=== PATIENT | male | born 1960 | race Two or more races ===

== ENCOUNTER → 2025-01-20 | Emergency (ER) | payer OTHER ==
[~2025-01-20] VITALS: Ht 182.9 cm; Wt 77.1 kg
[~2025-01-20] MED LIST: 0.9 % SODIUM CHLORIDE 1,000 ML IV STA; ATACAND32 MG PO; CRESTOR40 MG PO; GLIPIZIDE XL10 MG PO; KETOROLAC TROMETHAMINE 30 MG VIAL IV STA; PIPERACILLIN/TAZOBACTAM SODIUM 3.375 GM VIAL IV ONE; PIPERACILLIN/TAZOBACTAM SODIUM 3.375 GM VIAL IV STA; SYNTHROID75 MCG PO; TRAMADOL HCL 50 MG TABLET PO STA; XIGDUO XR 10 M1 EAC1 PO
[2025-01-20 04:32] LABS: BASO % 0.3 % (0.1-1.2); EOS # 0.03 (0.04-0.54); EOS % 0.2 % (0.7-7.0); LYMPH # 1.33 (1.18-3.74); LYMPH % 8.5 % (19.3-53.1); MEAN PLATELET VOLUME 8.70 fl (9.4-12.4); MONO # 1.04 (0.24-0.82); MONO % 6.7 % (4.7-12.5); NEUT # 13.10 (1.56-6.13); NEUT % 83.8 % (34.0-71.1); RED CELL DISTRIBUTION WIDTH 13.8 % (11.6-14.4)
[2025-01-20 04:49] LABS: ERYTHROCYTE SEDIMENTATION RATE 117 mm/hr (0-20)
[2025-01-20 04:59] LABS: INR 1.23
[2025-01-20 05:02] LABS: ALT/SGPT 17.0 U/L (12-78); AST/SGOT 12.0 U/L (15-37); BILIRUBIN TOTAL 0.38 mg/dL (0.3-1.2); BUN CREA RATIO 13.0 (7.0-25.0); CREATININE SERUM 2.17 mg/dL (0.70-1.30); GFR 30.58; GLOBULINA 5.1 G/DL (2.4-3.5); GLUCOSE FASTING 168.0 mg/dL (65-100); OSMOLALITY SERUM 294.0 MOSM/KG (275-295)
[2025-01-20 09:14] LABS: URINE APPEARANCE Cloudy; URINE BILIRRUBIN Negative (NEGATIVE); URINE BLOOD Negative; URINE COLOR Yellow; URINE KETONE 15 (NEGATIVE); URINE LEUKOCYTE Negative; URINE NITRATE Negative; URINE PROTEIN 30 (NEGATIVE); URINE UROBILINOGEN 0.2 E.U./dl
[2025-01-20 09:18] LABS: URINE BACTERIA 49.1 uL (0.0-1933); URINE EPITHELIAL CELLS 58.7 uL (0.0-38.8); URINE RBC 3.2 uL (0.0-20.8); URINE WBC 47.8 uL (0.0-23.2)
[2025-01-20 09:40] LABS: URINE GLUCOSE >=1000 MG/DL (NEGATIVE)
[2025-01-20 09:41] LABS: TYPE CELLS RENAL TUBULAR; URINE CAST 0.87 uL (0.0-1.40)
== END | disposition designated cancer center or children's hospital (05) ==
LOC: ER 02:37
DX: K61.0 Anal abscess (principal); K62.89 Other specified diseases of anus and rectum; E11.9 Type 2 diabetes mellitus without complications